=== PATIENT | female | born 1985 | race Hispanic/Latino ===

== ENCOUNTER 2023-07-29 09:39 | Emergency (ER) | payer OTHER, BC ==
[~2023-07-29] VITALS: Ht 152.4 cm; Wt 59.4 kg
[2023-07-29 11:59] VITALS: BP 128/79; PULSE 78; RESP 18; O2SAT 98
== END 2023-07-29 12:10 | disposition home or self-care (01) ==
LOC: EDH 09:39
DX: M25.561 Pain in right knee (principal); V89.2XXA Person injured in unspecified motor-vehicle accident, traffic, initial encounter; Y93.89 Activity, other specified; Y92.89 Other specified places as the place of occurrence of the external cause; Y99.8 Other external cause status
CPT/HCPCS: 71045; 81025; 93005